=== PATIENT | female | born 1990 | race Asian ===

== ENCOUNTER 2018-08-03 22:53 | Emergency (ER) | END 2018-08-04 02:24 | disposition home or self-care (01) ==

== ENCOUNTER 2019-01-08 00:01 | Outpatient (CLI) | payer BC ==
[~2019-01-08] VITALS: Ht 149.9 cm; Wt 69.1 kg
[~2019-01-08 00:01] MED LIST: ACET500C5 PO; CALC200T PO; CIPR500T4 PO; FAMO20TA18 PO; HYDR-4011 PO; IBUP-1542 PO; METR500T PO
[2019-01-08 01:23] VITALS: BP 117/64; PULSE 90; RESP 18; Ht 149.9 cm; Wt 69.1 kg
[2019-01-08] MEDS ORDERED: PREN1TAB71 PO (03:31)
--- NOTE | 2019-01-08 05:20 | TRIAGE ---
OB Triage Datetime Report Generated by CPN: 01/08/2019 05:20 Datetime: 01/08/2019 02:00 Stage of : OB Triage Labor Evaluation Frequency: NONE Monitor Mode: External Resting Tone [place]: Relaxed Datetime: 01/08/2019 00:13 Assessment Type: Triage Maternal Assessment Level of Consciousness: Fully Conscious DTR's/Clonus: DTRs 2+; No Clonus Headache: Denies Blurred Vision: No Respiratory Effort: Unlabored; Regular Rhythm; Equal Expansion Breath Sounds, Left: Clear and Equal Breath Sounds, Right: Clear and Equal Nausea/Vomiting: Denies RUQ Epigastric Pain: Denies Lower Extremities Edema: None Degree: None Upper Extremities Edema: None Degree: None Facial Edema: None Fall Risk Assessment History of Falling: (0) No Secondary Diagnosis: (0) No Ambulatory Aid: (0) Bedrest/Nurse Assist IV Therapy: (0) No Gait: (0) Normal/Bedrest/Immobile Mental Status: (0) Oriented to Own Ability Fall Score: 0 Fall Risk Score Definition: No Risk: No action required Datetime: 01/08/2019 00:12 Time of Arrival: 01/07/2019 23:50 EGA: 18.0 Arrived By: Wheelchair Arrived From: Emergency Dept Chief Complaint: Abdominal cramping, leg pain Movement: Present Contractions: Regular Rupture of Membranes: Denies Vaginal Bleeding: None Vaginal Discharge: Denies Abdominal Trauma: Not Applicable Patient Complaints: Cramping Time Provider Notified: 01/08/2019 01:10 Provider Notified: Kristi Initial Plan: VS, doppler, toco
--- NOTE | 2019-01-15 18:45 | PN ---
Triage Information Date/Time 01/08/2019 Reason for visit: contractions.left flank pain, Weeks of Gestation 21 weeks and 2 days /Para Diabetes: none Hypertention: none Additional information 28-year-old G3, P2 with IUP at 21 weeks and 2 days presented with complaint of contractions and left flank pain. Had a history of x2. She denies any leaking of fluid, vaginal bleeding or decreased movement. Denies any urinary symptoms. Objective Vitals are stable Heart Rate: 130's Exam Appearance: Alert and oriented x4 does not appear to be in any acute distress Given: Soft, gravid, fundal height consider gestational age, no tenderness, no rebound tenderness, no guarding, no rigidity : No calf tenderness, no click no edema no cord palpable Results/Medications Imaging Results PROCEDURE: Obstetrical ultrasound, limited. CLINICAL INDICATION: Pelvic pain. TECHNIQUE: Transvaginal evaluation of the cervix was performed. The images were reviewed on a PACS workstation. COMPARISON: 10/16/2018. FINDINGS: The cervix is closed measuring 4.7 cm. IMPRESSION: Cervical length of 4.7 cm. Disposition: Discharge Assessment/Plan 21 weeks and 2 days Lower abdominal pain and left flank pain. Clinical picture consistent with musculoskeletal pain No evidence of labor or pyelonephritis Symptoms resolved after Tylenol Patient was discharged home stable condition Strict labor precaution and follow-up with primary OB office within 48 hours after discharge from the hospital discussed with the patient Patient verbalized understanding. All questions answered to patient with satisfaction. SHOSHANA ANAYA MD January 15, 2019 18:45
== END 2019-01-08 03:15 | disposition home or self-care (01) ==
LOC: OBT 00:01 → L-D 00:01 → OBT 03:15
PROVIDERS: ATTEND Obstetrics & Gynecology
DX: O62.9 Abnormality of forces of labor, unspecified (principal); Z3A.21 21 weeks gestation of pregnancy
CPT/HCPCS: 76817; 81003; Z7500; G0463